=== PATIENT | female | born 1965 | race Caucasian/White ===

== ENCOUNTER 2020-12-27 15:00 | Day surgery (SDC) | payer BC ==
[2020-12-27] MEDS ORDERED: Sodium Chloride 0.9(Preservative Free) 10 ML IJ ONE (15:01)
[2020-12-27] MEDS ORDERED: Depo-Medrol 40 MG/ML IM ONE (15:01)
[2020-12-27] MEDS ORDERED: Lactated Ringers 1,000 ML IV ONE (15:44)
[2020-12-27] MEDS ORDERED: DIPRIVAN 200 MG/20 ML IV ONE (16:17)
--- NOTE | 2021-01-02 10:43 | XRAY ---
16 seconds fluoroscopy time in surgery for caudal PAWAN.
--- NOTE | 2021-01-02 10:47 | XRAY ---
Indication: Caudal PAWAN. Intraoperative fluoroscopy provided for 16 seconds. 2 digital spot image submitted for interpretation demonstrates posterior caudal needle tip projecting mid sacrum. Small amount of contrast injected for needle tip placement. Correlate with intraoperative findings/report.
== END 2020-12-27 16:46 | disposition home or self-care (01) ==
LOC: SDC-PAIN 15:00
PROVIDERS: ATTEND Psychiatry & Neurology Pain Medicine
DX: M54.16 Radiculopathy, lumbar region (principal); M19.90 Unspecified osteoarthritis, unspecified site; I10 Essential (primary) hypertension; Z79.899 Other long term (current) drug therapy
CPT/HCPCS: 62323; 72020; 77003; J1030; J2704; Q9966

== ENCOUNTER 2022-03-06 08:20 | Day surgery (SDC) | payer BC ==
[2022-03-06] MEDS ORDERED: Sensorcaine 0.25% 10 ML IJ ONE (08:21)
[2022-03-06] MEDS ORDERED: XYLOCAINE-MPF 1% 5ML SDV IJ ONE (08:21)
[2022-03-06] MEDS ORDERED: DIPRIVAN 200 MG/20 ML IV ONE (09:28)
[2022-03-06] MEDS ORDERED: Xylocaine-Mpf 2% 5 Ml Vial ONE (09:28)
[2022-03-06] MEDS ORDERED: Lactated Ringers 1,000 ML IV ONE (10:17)
--- NOTE | 2022-03-06 14:02 | XRAY ---
Indication: Left lumbar sympathetic nerve block. Intraoperative fluoroscopy provided for 50 seconds. 5 digital spot image submitted for interpretation demonstrates left posterior needle tip projecting just anterior to L2. Small amount of contrast injected for nuclear placement. Correlate with intraoperative findings/report.
--- NOTE | 2022-03-07 09:20 | XRAY ---
50 seconds fluoroscopy time in surgery for left lumbar sympathetic nerve block.
== END 2022-03-06 09:55 | disposition home or self-care (01) ==
LOC: SDC-PAIN 08:20
PROVIDERS: ATTEND Psychiatry & Neurology Pain Medicine
DX: G90.522 Complex regional pain syndrome I of left lower limb (principal); Z79.899 Other long term (current) drug therapy
CPT/HCPCS: 01952; 64520; 72100; 77002; J2704; Q9966